=== PATIENT | female | born 1940 | race African-American/Black ===

== ENCOUNTER 2021-07-04 07:23 | Inpatient (IN) | payer MEDICARE ==
[~2021-07-04] VITALS: Ht 167.6 cm; Wt 51.7 kg
[2021-07-04 08:13] LABS: BASOPHILS % 0.2 % (0.0-2.0); HEMATOCRIT. 32.5 % (36.0-48.0); HEMOGLOBIN. 10.6 g/dL (12.0-16.0); LYMPHOCYTES % 9.3 % (20.0-50.0); MEAN CORPUSCULAR HEMOGLOBIN 29.1 pg (28.0-32.0); MEAN CORPUSCULAR VOLUME 89.3 fL (81.0-99.0); MEAN PLATELET VOLUME 8.5 fl (7.4-10.4); MONOCYTES % 12.5 % (2.0-8.0); PLATELET 170 x1000/uL (130-400); RED BLOOD CELL COUNT 3.64 mill/uL (4.2-5.4); RED CELL DISTRIBUTION WIDTH 14.2 % (11.6-14.6)
[2021-07-04 08:23] LABS: CHLORIDE 100 mEq/L (98-107)
[2021-07-04] MEDS ORDERED: SODIUM CHLORIDE 0.9% 500 ML IV ONE (09:30)
[2021-07-04 11:11] LABS: CLARITY URINE CLEAR (CLEAR); COLOR URINE YELLOW (YELLOW); KETONES URINE 1+ (NEGATIVE); LEUKOCYTE ESTERASE URINE NEGATIVE (NEGATIVE); NITRITE URINE NEGATIVE (NEGATIVE); OCCULT BLOOD URINE 1+ (NEGATIVE); PROTEIN URINE 1+ (NEGATIVE); SPECIFIC GRAVITY URINE 1.017 (1.005-1.030); UROBILINOGEN URINE 0.2 E.U./dL (0.2-1.0)
[2021-07-04] MEDS ORDERED: HYDRALAZINE 20MG/ML VIAL IV ONE (14:15)
[2021-07-04] MEDS ORDERED: HYDROCODONE/ACETAMINOPHEN 5/325MG TABLET PO PRN (15:00)
[2021-07-04] MEDS ORDERED: ACETAMINOPHEN 325MG TABLET PO PRN (15:00)
[2021-07-04] MEDS ORDERED: GUAIFENESIN 200MG/10ML SUGAR FREE UDC PO PRN (15:00)
[2021-07-04] MEDS ORDERED: ONDANSETRON HCL 4MG/2ML INJ IV PRN (15:00)
[2021-07-04] MEDS ORDERED: MAGNESIUM/ALUMINUM HYDROXIDE/SIMETHICONE 30ML UDC PO PRN (15:00)
[2021-07-04] MEDS ORDERED: NALOXONE HCL 0.4MG/ML VIAL IV PRN (15:15)
[2021-07-04] MEDS: SODIUM CHLORIDE 0.9% 1,000 ML IV SCH (15:51)
[2021-07-04] MEDS: ENOXAPARIN 40MG/0.4ML SYR SUBCUT SCH (16:00)
[2021-07-04] MEDS: CLONIDINE 0.1MG TABLET PO PRN (17:00)
[2021-07-04] MEDS ORDERED: DEXTROSE 50% WATER 50ML SYRINGE IV PRN (18:45)
[2021-07-04 20:00] VITALS: BP 108/50
[2021-07-04] MEDS: INSULIN LISPRO 100 UNITS/ML SUBCUT SCH (21:00)
[2021-07-04] MEDS: BLOOD SUGAR DIAGNOSTIC STRIP TEST SCH (21:00)
[2021-07-04] MEDS ORDERED: INSULIN LISPRO 100 UNITS/ML SUBCUT SCH (21:30)
[2021-07-04] MEDS ORDERED: METO-411 PO (23:21)
[2021-07-04] MEDS ORDERED: LATA2.5D14 EACHEYE (23:21)
[2021-07-04] MEDS ORDERED: FELO10TA45 PO (23:21)
[2021-07-04] MEDS ORDERED: METF-416 PO (23:21)
[2021-07-04] MEDS ORDERED: GLIP10TA10 PO (23:21)
[2021-07-04] MEDS ORDERED: LOSA1TAB37 PO (23:21)
[2021-07-04] MEDS: AMLODIPINE 10MG TABLET PO SCH (23:30)
[2021-07-05] VITALS: BP 91/43
[2021-07-05] MEDS: SODIUM CHLORIDE 0.9% 1,000 ML IV SCH ×2 (00:24→13:49)
[2021-07-05 04:00] VITALS: BP 126/51
[2021-07-05] MEDS: BLOOD SUGAR DIAGNOSTIC STRIP TEST SCH ×4 (06:35→21:25)
[2021-07-05] MEDS: INSULIN LISPRO 100 UNITS/ML SUBCUT SCH ×4 (06:37→21:44)
[2021-07-05 06:53] LABS: HEMATOCRIT. 31.5 % (36.0-48.0); HEMOGLOBIN. 10.3 g/dL (12.0-16.0); MEAN CORPUSCULAR HEMOGLOBIN 28.9 pg (28.0-32.0); MEAN CORPUSCULAR VOLUME 88.7 fL (81.0-99.0); MEAN PLATELET VOLUME 8.9 fl (7.4-10.4); PLATELET 145 x1000/uL (130-400); RED BLOOD CELL COUNT 3.56 mill/uL (4.2-5.4); RED CELL DISTRIBUTION WIDTH 14.2 % (11.6-14.6)
[2021-07-05 07:39] LABS: FOLIC ACID (FOLATE) SERUM > 20.00 ng/mL (>5.38); VITAMIN B12 SERUM 339 pg/mL (211-911)
[2021-07-05 08:02] VITALS: BP 145/57
[2021-07-05] MEDS: METOPROLOL TARTRATE 50MG TABLET PO SCH ×2 (08:21→21:45)
[2021-07-05] MEDS: AMLODIPINE 10MG TABLET PO SCH (08:21)
[2021-07-05 12:00] VITALS: BP 142/61
[2021-07-05 14:38] LABS: CHLORIDE 105 mEq/L (98-107)
[2021-07-05 14:58] LABS: PHOSPHORUS 3.7 mg/dL (2.5-4.9)
[2021-07-05 16:00] VITALS: BP 170/63
[2021-07-05] MEDS: CLONIDINE 0.1MG TABLET PO PRN (17:10)
[2021-07-05] MEDS: ACETAMINOPHEN 325MG TABLET PO PRN (17:10)
[2021-07-05] MEDS: ENOXAPARIN 40MG/0.4ML SYR SUBCUT SCH (17:15)
[2021-07-05 19:06] LABS: PLATELET ESTIMATE NORMAL
[2021-07-05 20:20] VITALS: BP 99/50
[2021-07-06] VITALS (7 sets, daily range): BP systolic 104–169; BP diastolic 60–81
[2021-07-06] MEDS: BLOOD SUGAR DIAGNOSTIC STRIP TEST SCH ×4 (06:12→21:00)
[2021-07-06] MEDS: INSULIN LISPRO 100 UNITS/ML SUBCUT SCH ×4 (06:19→22:14)
[2021-07-06 08:04] LABS: BASOPHILS % 0.3 % (0.0-2.0); EOSINOPHILS % 0.2 % (0.0-5.0); HEMATOCRIT. 30.9 % (36.0-48.0); HEMOGLOBIN. 10.1 g/dL (12.0-16.0); LYMPHOCYTES % 13.5 % (20.0-50.0); MEAN CORPUSCULAR HEMOGLOBIN 28.6 pg (28.0-32.0); MEAN CORPUSCULAR VOLUME 87.6 fL (81.0-99.0); MEAN PLATELET VOLUME 8.9 fl (7.4-10.4); MONOCYTES % 9.7 % (2.0-8.0); NEUTROPHILS % 76.3 % (40.0-76.0); PLATELET 139 x1000/uL (130-400); RED BLOOD CELL COUNT 3.52 mill/uL (4.2-5.4)
[2021-07-06 08:22] LABS: CHLORIDE 106 mEq/L (98-107)
[2021-07-06 08:31] LABS: PHOSPHORUS 2.5 mg/dL (2.5-4.9)
[2021-07-06] MEDS: METOPROLOL TARTRATE 50MG TABLET PO SCH ×2 (10:14→22:11)
[2021-07-06] MEDS: AMLODIPINE 10MG TABLET PO SCH (10:14)
[2021-07-06] MEDS: SODIUM CHLORIDE 0.9% 1,000 ML IV SCH ×2 (10:15→16:17)
[2021-07-06] MEDS: ENOXAPARIN 40MG/0.4ML SYR SUBCUT SCH (16:17)
[2021-07-06] MEDS ORDERED: INSULIN GLARGINE 100 UNITS/ML SUBCUT SCH (18:15)
[2021-07-06] MEDS: CLONIDINE 0.1MG TABLET PO PRN (22:12)
[2021-07-07] VITALS: BP 131/57
[2021-07-07 04:00] VITALS: BP 158/60
[2021-07-07] MEDS: BLOOD SUGAR DIAGNOSTIC STRIP TEST SCH ×4 (06:06→20:00)
[2021-07-07] MEDS: INSULIN LISPRO 100 UNITS/ML SUBCUT SCH ×7 (06:42→21:00)
[2021-07-07 08:00] VITALS: BP 158/59
[2021-07-07 08:14] LABS: BASOPHILS % 0.2 % (0.0-2.0); EOSINOPHILS % 0.6 % (0.0-5.0); HEMATOCRIT. 29.8 % (36.0-48.0); HEMOGLOBIN. 9.7 g/dL (12.0-16.0); LYMPHOCYTES % 17.9 % (20.0-50.0); MEAN CORPUSCULAR HEMOGLOBIN 28.6 pg (28.0-32.0); MEAN CORPUSCULAR VOLUME 87.9 fL (81.0-99.0); MEAN PLATELET VOLUME 8.7 fl (7.4-10.4); MONOCYTES % 10.8 % (2.0-8.0); NEUTROPHILS % 70.5 % (40.0-76.0); PLATELET 132 x1000/uL (130-400); RED CELL DISTRIBUTION WIDTH 14.2 % (11.6-14.6)
[2021-07-07 08:30] LABS: CHLORIDE 109 mEq/L (98-107)
[2021-07-07 08:37] LABS: PHOSPHORUS 2.2 mg/dL (2.5-4.9); TOTAL IRON BINDING CAPACITY 269 ug/dL (250-450)
[2021-07-07] MEDS: METOPROLOL TARTRATE 50MG TABLET PO SCH ×2 (09:00→21:48)
[2021-07-07] MEDS: AMLODIPINE 10MG TABLET PO SCH (09:00)
[2021-07-07] MEDS: INSULIN GLARGINE 100 UNITS/ML SUBCUT SCH (10:53)
[2021-07-07 12:00] VITALS: BP 164/62
[2021-07-07] MEDS: FERROUS SULFATE 325MG TABLET PO SCH (12:55)
[2021-07-07] MEDS: MAGNESIUM OXIDE 400MG TABLET PO SCH ×2 (12:55→18:04)
[2021-07-07] MEDS: CLONIDINE 0.1MG TABLET PO PRN (13:39)
[2021-07-07] MEDS: POTASSIUM-SODIUM PHOSPHATE POWDER PACKET PO SCH ×2 (13:39→18:04)
[2021-07-07] MEDS: ENOXAPARIN 40MG/0.4ML SYR SUBCUT SCH (15:53)
[2021-07-07 16:00] VITALS: BP 125/59
[2021-07-07 17:32] LABS: T4 FREE 1.8 ng/dL (0.76-1.46)
[2021-07-07 20:00] VITALS: BP 132/57
[2021-07-08] VITALS: BP 142/77
[2021-07-08 04:00] VITALS: BP 141/57
[2021-07-08] MEDS: BLOOD SUGAR DIAGNOSTIC STRIP TEST SCH ×4 (06:08→21:48)
[2021-07-08] MEDS: INSULIN LISPRO 100 UNITS/ML SUBCUT SCH ×7 (06:28→22:06)
[2021-07-08 06:59] LABS: BASOPHILS % 0.2 % (0.0-2.0); EOSINOPHILS % 0.6 % (0.0-5.0); HEMATOCRIT. 29.2 % (36.0-48.0); HEMOGLOBIN. 9.5 g/dL (12.0-16.0); LYMPHOCYTES % 14.8 % (20.0-50.0); MEAN CORPUSCULAR HEMOGLOBIN 28.7 pg (28.0-32.0); MEAN CORPUSCULAR VOLUME 87.6 fL (81.0-99.0); MEAN PLATELET VOLUME 9.2 fl (7.4-10.4); MONOCYTES % 11.3 % (2.0-8.0); NEUTROPHILS % 73.1 % (40.0-76.0); PLATELET 153 x1000/uL (130-400); RED BLOOD CELL COUNT 3.33 mill/uL (4.2-5.4); RED CELL DISTRIBUTION WIDTH 13.6 % (11.6-14.6)
[2021-07-08 08:00] VITALS: BP 144/57
[2021-07-08 08:05] LABS: CHLORIDE 107 mEq/L (98-107); PHOSPHORUS 2.3 mg/dL (2.5-4.9)
[2021-07-08] MEDS: FERROUS SULFATE 325MG TABLET PO SCH (10:27)
[2021-07-08] MEDS: AMLODIPINE 10MG TABLET PO SCH (10:27)
[2021-07-08] MEDS: METOPROLOL TARTRATE 50MG TABLET PO SCH ×2 (10:27→21:44)
[2021-07-08] MEDS: INSULIN GLARGINE 100 UNITS/ML SUBCUT SCH (11:20)
[2021-07-08 12:00] VITALS: BP 130/48
[2021-07-08 16:00] VITALS: BP 152/61
[2021-07-08] MEDS ORDERED: LANC-335 MC (17:03)
[2021-07-08] MEDS ORDERED: [UNRECOGNIZED DRUG - CODE] MC (17:03)
[2021-07-08] MEDS ORDERED: METO-539 PO (17:03)
[2021-07-08] MEDS ORDERED: PEN1DIS.48 MC (17:03)
[2021-07-08] MEDS ORDERED: FERR-63 PO (17:03)
[2021-07-08] MEDS ORDERED: INSU100I28 SQ (17:03)
[2021-07-08] MEDS: ENOXAPARIN 40MG/0.4ML SYR SUBCUT SCH (17:44)
[2021-07-08 20:00] VITALS: BP_SYST 122; BP_SYST 125; BP_DIAS 59; BP_DIAS 66
[2021-07-09] VITALS (7 sets, daily range): BP systolic 108–147; BP diastolic 52–81
[2021-07-09] MEDS: BLOOD SUGAR DIAGNOSTIC STRIP TEST SCH ×4 (06:06→20:46)
[2021-07-09] MEDS: INSULIN LISPRO 100 UNITS/ML SUBCUT SCH ×7 (06:25→20:55)
[2021-07-09] MEDS: METOPROLOL TARTRATE 50MG TABLET PO SCH ×2 (08:29→20:46)
[2021-07-09] MEDS: SODIUM CHLORIDE 0.9% 500 ML IV SCH ×3 (08:29→20:58)
[2021-07-09 10:31] LABS: HEMATOCRIT. 30.9 % (36.0-48.0); HEMOGLOBIN. 9.8 g/dL (12.0-16.0); MEAN CORPUSCULAR VOLUME 87.8 fL (81.0-99.0); MEAN PLATELET VOLUME 8.8 fl (7.4-10.4); PLATELET 213 x1000/uL (130-400); RED BLOOD CELL COUNT 3.52 mill/uL (4.2-5.4); RED CELL DISTRIBUTION WIDTH 13.8 % (11.6-14.6)
[2021-07-09 10:40] LABS: CHLORIDE 108 mEq/L (98-107)
[2021-07-09 10:46] LABS: PHOSPHORUS 3.2 mg/dL (2.5-4.9)
[2021-07-09] MEDS: INSULIN GLARGINE 100 UNITS/ML SUBCUT SCH (11:11)
[2021-07-09] MEDS ORDERED: POTASSIUM CHLORIDE 20MEQ TABLET SR PO NR (14:45)
[2021-07-09 14:49] LABS: PLATELET ESTIMATE NORMAL
[2021-07-09] MEDS: ENOXAPARIN 40MG/0.4ML SYR SUBCUT SCH (17:51)
[2021-07-10] VITALS (7 sets, daily range): BP systolic 125–176; BP diastolic 53–100
[2021-07-10] MEDS: CLONIDINE 0.1MG TABLET PO PRN (00:53)
[2021-07-10] MEDS: SODIUM CHLORIDE 0.9% 500 ML IV SCH ×2 (04:00→11:27)
[2021-07-10] MEDS: BLOOD SUGAR DIAGNOSTIC STRIP TEST SCH ×4 (05:46→21:00)
[2021-07-10] MEDS: INSULIN LISPRO 100 UNITS/ML SUBCUT SCH ×7 (05:53→21:00)
[2021-07-10] MEDS: INSULIN GLARGINE 100 UNITS/ML SUBCUT SCH (10:00)
[2021-07-10] MEDS: FERROUS SULFATE 325MG TABLET PO SCH (11:26)
[2021-07-10] MEDS: METOPROLOL TARTRATE 50MG TABLET PO SCH (11:27)
[2021-07-10] MEDS: ENOXAPARIN 40MG/0.4ML SYR SUBCUT SCH (16:00)
[2021-07-10 16:59] LABS: CHLORIDE 107 mEq/L (98-107)
[2021-07-10] MEDS: SODIUM CHLORIDE 0.9% 1,000 ML IV SCH (18:53)
[2021-07-11] VITALS: BP 124/70
[2021-07-11] MEDS: METOPROLOL TARTRATE 50MG TABLET PO SCH ×3 (03:19→21:37)
[2021-07-11 04:00] VITALS: BP 160/84
[2021-07-11] MEDS: SODIUM CHLORIDE 0.9% 1,000 ML IV SCH ×2 (07:08→21:20)
[2021-07-11] MEDS: INSULIN LISPRO 100 UNITS/ML SUBCUT SCH ×7 (07:10→21:38)
[2021-07-11] MEDS: BLOOD SUGAR DIAGNOSTIC STRIP TEST SCH ×4 (07:18→21:40)
[2021-07-11 08:00] VITALS: BP 171/69
[2021-07-11] MEDS: INSULIN GLARGINE 100 UNITS/ML SUBCUT SCH (10:47)
[2021-07-11 12:00] VITALS: BP 151/65
[2021-07-11] MEDS ORDERED: POTASSIUM CHLORIDE 20MEQ TABLET SR PO NR (12:15)
[2021-07-11] MEDS: AMLODIPINE 10MG TABLET PO SCH (14:40)
[2021-07-11 16:00] VITALS: BP 158/68
[2021-07-11] MEDS: ENOXAPARIN 40MG/0.4ML SYR SUBCUT SCH (18:20)
[2021-07-11 20:00] VITALS: BP_SYST 138; BP_SYST 167; BP_SYST 184; BP_DIAS 50; BP_DIAS 59; BP_DIAS 67
[2021-07-12] VITALS: BP 142/65
[2021-07-12 04:00] VITALS: BP 147/68
[2021-07-12] MEDS: INSULIN LISPRO 100 UNITS/ML SUBCUT SCH ×6 (06:32→21:00)
[2021-07-12] MEDS: BLOOD SUGAR DIAGNOSTIC STRIP TEST SCH ×3 (06:33→21:38)
[2021-07-12 08:00] VITALS: BP 145/72
[2021-07-12] MEDS: METOPROLOL TARTRATE 50MG TABLET PO SCH ×2 (09:39→21:00)
[2021-07-12] MEDS: FERROUS SULFATE 325MG TABLET PO SCH (09:39)
[2021-07-12] MEDS: AMLODIPINE 10MG TABLET PO SCH (09:40)
[2021-07-12] MEDS: SODIUM CHLORIDE 0.9% 1,000 ML IV SCH (09:42)
[2021-07-12] MEDS: INSULIN GLARGINE 100 UNITS/ML SUBCUT SCH (09:42)
[2021-07-12 12:00] VITALS: BP 146/70
[2021-07-12 16:00] VITALS: BP 151/68
[2021-07-12] MEDS: ENOXAPARIN 40MG/0.4ML SYR SUBCUT SCH (16:28)
[2021-07-12 20:00] VITALS: BP 113/62
[2021-07-13] VITALS (7 sets, daily range): BP systolic 130–159; BP diastolic 69–78
[2021-07-13] MEDS: INSULIN LISPRO 100 UNITS/ML SUBCUT SCH ×7 (06:15→21:00)
[2021-07-13] MEDS: BLOOD SUGAR DIAGNOSTIC STRIP TEST SCH ×4 (06:15→21:16)
[2021-07-13] MEDS: AMLODIPINE 10MG TABLET PO SCH (09:02)
[2021-07-13] MEDS: METOPROLOL TARTRATE 50MG TABLET PO SCH (09:02)
[2021-07-13] MEDS: INSULIN GLARGINE 100 UNITS/ML SUBCUT SCH (09:09)
[2021-07-13] MEDS: CARVEDILOL 6.25 MG TABLET PO SCH ×2 (12:46→21:20)
[2021-07-13 15:47] LABS: BASOPHILS % 0.3 % (0.0-2.0); EOSINOPHILS % 0.3 % (0.0-5.0); HEMATOCRIT. 27.8 % (36.0-48.0); HEMOGLOBIN. 9.1 g/dL (12.0-16.0); LYMPHOCYTES % 12.9 % (20.0-50.0); MEAN CORPUSCULAR HEMOGLOBIN 28.6 pg (28.0-32.0); MEAN CORPUSCULAR VOLUME 87.3 fL (81.0-99.0); MEAN PLATELET VOLUME 7.6 fl (7.4-10.4); MONOCYTES % 9.5 % (2.0-8.0); PLATELET 301 x1000/uL (130-400); RED BLOOD CELL COUNT 3.18 mill/uL (4.2-5.4); RED CELL DISTRIBUTION WIDTH 13.2 % (11.6-14.6)
[2021-07-13 15:57] LABS: CHLORIDE 108 mEq/L (98-107)
[2021-07-13] MEDS: ENOXAPARIN 40MG/0.4ML SYR SUBCUT SCH (17:23)
[2021-07-13] MEDS: SODIUM CHLORIDE 0.9% 1,000 ML IV SCH ×2 (17:25)
[2021-07-14] VITALS: BP 156/71
[2021-07-14] MEDS: SODIUM CHLORIDE 0.9% 1,000 ML IV SCH ×2 (00:24→17:06)
[2021-07-14 04:00] VITALS: BP 157/81
[2021-07-14] MEDS: BLOOD SUGAR DIAGNOSTIC STRIP TEST SCH ×4 (06:28→21:24)
[2021-07-14] MEDS: INSULIN LISPRO 100 UNITS/ML SUBCUT SCH ×7 (06:30→21:00)
[2021-07-14 08:00] VITALS: BP 159/79
[2021-07-14] MEDS: CARVEDILOL 6.25 MG TABLET PO SCH ×2 (10:16→21:23)
[2021-07-14] MEDS: AMLODIPINE 10MG TABLET PO SCH (10:16)
[2021-07-14] MEDS: INSULIN GLARGINE 100 UNITS/ML SUBCUT SCH (10:43)
[2021-07-14 12:00] VITALS: BP 155/68
[2021-07-14] MEDS: CLONIDINE 0.1MG TABLET PO PRN (13:28)
[2021-07-14 16:00] VITALS: BP 120/61
[2021-07-14 17:06] LABS: BG BASE EXCESS 1.1 mmol/L (-2.0-2.0); BG CARBOXYHEMOGLOBIN 0.3 % (0.5-1.5); BG DEOXYHEMOGLOBIN 13.2 % (0.0-5.0); BG FRACTION INSPIRED OXYGEN 21; BG HCO3 ACT 23.4 mmol/L (22.0-26.0); BG METHEMOGLOBIN 0.2 % (0.0-1.5); BG OXYGEN SATURATION 86.7 % (92.0-98.5); BG OXYHEMOGLOBIN 86.3 % (94.0-97.0); BG PCO2 29.3 mmHg (35.0-45.0); BG PH 7.521 (7.350-7.450); BG SAMPLE SITE LEFT RADIAL; BG VENT MODE ROOM AIR
[2021-07-14] MEDS: ENOXAPARIN 40MG/0.4ML SYR SUBCUT SCH (17:06)
[2021-07-14] MEDS ORDERED: IOHEXOL-350 100 ML BOTTLE ONE (19:04)
[2021-07-14 20:00] VITALS: BP 119/56
[2021-07-14] MEDS: MEMANTINE HCL 5MG TABLET PO SCH (21:24)
[2021-07-15] VITALS: BP 122/68
[2021-07-15 04:00] VITALS: BP 142/64
[2021-07-15] MEDS: SODIUM CHLORIDE 0.9% 1,000 ML IV SCH ×2 (05:36→21:24)
[2021-07-15] MEDS: INSULIN LISPRO 100 UNITS/ML SUBCUT SCH ×7 (05:40→21:27)
[2021-07-15] MEDS: BLOOD SUGAR DIAGNOSTIC STRIP TEST SCH ×4 (05:41→21:00)
[2021-07-15 08:00] VITALS: BP 125/68
[2021-07-15] MEDS ORDERED: APIXABAN 2.5 MG TABLET PO SCH (09:00)
[2021-07-15] MEDS: MEMANTINE HCL 5MG TABLET PO SCH ×2 (09:12→21:26)
[2021-07-15] MEDS: AMLODIPINE 10MG TABLET PO SCH (09:12)
[2021-07-15] MEDS: CARVEDILOL 6.25 MG TABLET PO SCH ×2 (09:12→21:25)
[2021-07-15] MEDS: FERROUS SULFATE 325MG TABLET PO SCH (09:17)
[2021-07-15] MEDS: INSULIN GLARGINE 100 UNITS/ML SUBCUT SCH (10:54)
[2021-07-15] MEDS: CEFTRIAXONE 1,000 MG in DEXTROSE 5% WATER 50 ML IV SCH (10:55)
[2021-07-15 12:00] VITALS: BP 118/74
[2021-07-15 16:00] VITALS: BP 131/52
[2021-07-15 20:00] VITALS: BP 144/61
[2021-07-15] MEDS: ACETAMINOPHEN 325MG TABLET PO PRN (23:37)
[2021-07-16] VITALS: BP 140/59
[2021-07-16 04:00] VITALS: BP 123/57
[2021-07-16] MEDS: BLOOD SUGAR DIAGNOSTIC STRIP TEST SCH ×4 (06:40→21:00)
[2021-07-16] MEDS: INSULIN LISPRO 100 UNITS/ML SUBCUT SCH ×7 (06:40→21:29)
[2021-07-16 08:00] VITALS: BP 136/59
[2021-07-16] MEDS: AMLODIPINE 10MG TABLET PO SCH (08:57)
[2021-07-16] MEDS: MEMANTINE HCL 5MG TABLET PO SCH ×2 (08:57→21:47)
[2021-07-16] MEDS: CARVEDILOL 6.25 MG TABLET PO SCH ×2 (08:57→21:47)
[2021-07-16] MEDS: INSULIN GLARGINE 100 UNITS/ML SUBCUT SCH (10:03)
[2021-07-16] MEDS: CEFTRIAXONE 1,000 MG in DEXTROSE 5% WATER 50 ML IV SCH (10:04)
[2021-07-16 12:00] VITALS: BP 140/53
[2021-07-16] MEDS: ENOXAPARIN 30MG/0.3ML SYR SUBCUT SCH (12:34)
[2021-07-16] MEDS: SODIUM CHLORIDE 0.9% 1,000 ML IV SCH ×2 (12:38→21:45)
[2021-07-16 16:00] VITALS: BP 111/73
[2021-07-16 20:00] VITALS: BP 149/67
[2021-07-16] MEDS: ACETAMINOPHEN 325MG TABLET PO PRN (21:46)
[2021-07-17] VITALS: BP 127/57
[2021-07-17 04:00] VITALS: BP 150/56
[2021-07-17] MEDS: BLOOD SUGAR DIAGNOSTIC STRIP TEST SCH ×4 (06:01→21:00)
[2021-07-17] MEDS: INSULIN LISPRO 100 UNITS/ML SUBCUT SCH ×7 (06:01→21:00)
[2021-07-17 08:00] VITALS: BP 151/65
[2021-07-17] MEDS: CARVEDILOL 6.25 MG TABLET PO SCH ×2 (09:03→22:11)
[2021-07-17] MEDS: FERROUS SULFATE 325MG TABLET PO SCH (09:03)
[2021-07-17] MEDS: AMLODIPINE 10MG TABLET PO SCH (09:03)
[2021-07-17] MEDS: MEMANTINE HCL 5MG TABLET PO SCH ×2 (09:03→22:11)
[2021-07-17] MEDS: CEFTRIAXONE 1,000 MG in DEXTROSE 5% WATER 50 ML IV SCH (10:21)
[2021-07-17] MEDS: INSULIN GLARGINE 100 UNITS/ML SUBCUT SCH (10:29)
[2021-07-17 12:00] VITALS: BP 135/58
[2021-07-17] MEDS: SODIUM CHLORIDE 0.9% 1,000 ML IV SCH (12:58)
[2021-07-17] MEDS: ENOXAPARIN 30MG/0.3ML SYR SUBCUT SCH (12:58)
[2021-07-17 15:39] LABS: BASOPHILS % 0.5 % (0.0-2.0); EOSINOPHILS % 0.6 % (0.0-5.0); HEMATOCRIT. 25.8 % (36.0-48.0); HEMOGLOBIN. 8.4 g/dL (12.0-16.0); MEAN PLATELET VOLUME 7.8 fl (7.4-10.4); MONOCYTES % 10.1 % (2.0-8.0); NEUTROPHILS % 77.8 % (40.0-76.0); PLATELET 319 x1000/uL (130-400); RED CELL DISTRIBUTION WIDTH 13.8 % (11.6-14.6)
[2021-07-17 15:57] LABS: CHLORIDE 111 mEq/L (98-107)
[2021-07-17 16:00] VITALS: BP 131/61
[2021-07-17] MEDS ORDERED: POTASSIUM CHLORIDE 20MEQ TABLET SR PO NR (19:00)
[2021-07-17 20:00] VITALS: BP 122/56
[2021-07-18] VITALS: BP 140/57
[2021-07-18 04:00] VITALS: BP 136/49
[2021-07-18] MEDS: INSULIN LISPRO 100 UNITS/ML SUBCUT SCH ×7 (06:11→21:26)
[2021-07-18] MEDS: BLOOD SUGAR DIAGNOSTIC STRIP TEST SCH ×4 (06:11→21:26)
[2021-07-18 08:00] VITALS: BP 140/67
[2021-07-18] MEDS: CARVEDILOL 6.25 MG TABLET PO SCH ×2 (08:50→21:26)
[2021-07-18] MEDS: MEMANTINE HCL 5MG TABLET PO SCH ×2 (08:50→21:26)
[2021-07-18] MEDS: AMLODIPINE 10MG TABLET PO SCH (08:50)
[2021-07-18] MEDS: INSULIN GLARGINE 100 UNITS/ML SUBCUT SCH (10:58)
[2021-07-18] MEDS: CEFTRIAXONE 1,000 MG in DEXTROSE 5% WATER 50 ML IV SCH (11:02)
[2021-07-18 12:00] VITALS: BP 146/71
[2021-07-18] MEDS: ENOXAPARIN 30MG/0.3ML SYR SUBCUT SCH (12:50)
[2021-07-18 16:00] VITALS: BP 150/72
[2021-07-18] MEDS: SODIUM CHLORIDE 0.9% 1,000 ML IV SCH ×3 (17:38→23:58)
[2021-07-18 18:13] LABS: CHLORIDE 110 mEq/L (98-107)
[2021-07-19] VITALS: BP 165/65
[2021-07-19] MEDS: BLOOD SUGAR DIAGNOSTIC STRIP TEST SCH ×4 (06:40→20:13)
[2021-07-19] MEDS: INSULIN LISPRO 100 UNITS/ML SUBCUT SCH ×7 (06:40→20:20)
[2021-07-19 08:00] VITALS: BP 149/69
[2021-07-19] MEDS: FERROUS SULFATE 325MG TABLET PO SCH (09:04)
[2021-07-19] MEDS: MEMANTINE HCL 5MG TABLET PO SCH ×2 (09:04→20:14)
[2021-07-19] MEDS: AMLODIPINE 10MG TABLET PO SCH (09:04)
[2021-07-19] MEDS: CARVEDILOL 6.25 MG TABLET PO SCH ×2 (09:04→20:13)
[2021-07-19] MEDS: ENOXAPARIN 30MG/0.3ML SYR SUBCUT SCH (10:55)
[2021-07-19] MEDS: CEFTRIAXONE 1,000 MG in DEXTROSE 5% WATER 50 ML IV SCH (10:55)
[2021-07-19] MEDS: INSULIN GLARGINE 100 UNITS/ML SUBCUT SCH (10:55)
[2021-07-19 12:00] VITALS: BP 144/66
[2021-07-19 16:00] VITALS: BP 130/60
[2021-07-19] MEDS: SODIUM CHLORIDE 0.9% 1,000 ML IV SCH (16:42)
[2021-07-19 20:00] VITALS: BP 138/57
[2021-07-19 20:16] LABS: HEMATOCRIT 27.2 % (36.0-48.0); HEMOGLOBIN 8.6 g/dL (12.0-16.0); MEAN CORPUSCULAR HEMOGLOBIN 27.4 pg (28.0-32.0); MEAN CORPUSCULAR VOLUME 87.2 fL (81.0-99.0); PLATELET 287 x1000/uL (130-400); RED BLOOD CELL COUNT 3.12 mill/uL (4.2-5.4); RED CELL DISTRIBUTION WIDTH 13.9 % (11.6-14.6)
[2021-07-19 20:36] LABS: CHLORIDE 111 mEq/L (98-107)
[2021-07-20] VITALS: BP 132/55
[2021-07-20 04:00] VITALS: BP 136/54
[2021-07-20] MEDS: SODIUM CHLORIDE 0.9% 1,000 ML IV SCH ×2 (04:21→18:02)
[2021-07-20] MEDS: INSULIN LISPRO 100 UNITS/ML SUBCUT SCH ×7 (05:44→20:42)
[2021-07-20] MEDS: BLOOD SUGAR DIAGNOSTIC STRIP TEST SCH ×4 (06:01→20:30)
[2021-07-20 08:00] VITALS: BP_SYST 130; BP_SYST 138; BP_DIAS 60; BP_DIAS 63
[2021-07-20] MEDS: AMLODIPINE 10MG TABLET PO SCH (10:04)
[2021-07-20] MEDS: MEMANTINE HCL 5MG TABLET PO SCH ×2 (10:04→20:30)
[2021-07-20] MEDS: CARVEDILOL 6.25 MG TABLET PO SCH ×2 (10:04→20:30)
[2021-07-20] MEDS: CEFTRIAXONE 1,000 MG in DEXTROSE 5% WATER 50 ML IV SCH (10:05)
[2021-07-20] MEDS: INSULIN GLARGINE 100 UNITS/ML SUBCUT SCH (10:06)
[2021-07-20 10:37] LABS: BG BASE EXCESS 1.1 mmol/L (-2.0-2.0); BG CARBOXYHEMOGLOBIN 0.3 % (0.5-1.5); BG DEOXYHEMOGLOBIN 4.8 % (0.0-5.0); BG FRACTION INSPIRED OXYGEN 21; BG HCO3 ACT 23.9 mmol/L (22.0-26.0); BG METHEMOGLOBIN 0.4 % (0.0-1.5); BG OXYGEN SATURATION 95.2 % (92.0-98.5); BG OXYHEMOGLOBIN 94.5 % (94.0-97.0); BG PCO2 30.7 mmHg (35.0-45.0); BG PO2 72.8 mmHg (75.0-100.0); BG SAMPLE SITE LEFT RADIAL; BG TOTAL HEMOGLOBIN 8.1 g/dL (12.0-18.0); BG VENT MODE ROOM AIR
[2021-07-20] MEDS: ENOXAPARIN 30MG/0.3ML SYR SUBCUT SCH (11:55)
[2021-07-20 12:00] VITALS: BP 129/59
[2021-07-20 16:00] VITALS: BP 136/60
[2021-07-20 20:00] VITALS: BP 111/54
[2021-07-21] VITALS: BP 128/46
[2021-07-21 04:00] VITALS: BP 138/57
[2021-07-21] MEDS: BLOOD SUGAR DIAGNOSTIC STRIP TEST SCH ×2 (06:20→11:40)
[2021-07-21] MEDS: INSULIN LISPRO 100 UNITS/ML SUBCUT SCH ×4 (06:26→13:26)
[2021-07-21 08:00] VITALS: BP 131/60
[2021-07-21] MEDS: SODIUM CHLORIDE 0.9% 1,000 ML IV SCH (08:00)
[2021-07-21] MEDS: CARVEDILOL 6.25 MG TABLET PO SCH (08:59)
[2021-07-21] MEDS: AMLODIPINE 10MG TABLET PO SCH (09:00)
[2021-07-21] MEDS: MEMANTINE HCL 5MG TABLET PO SCH (09:02)
[2021-07-21] MEDS: ENOXAPARIN 30MG/0.3ML SYR SUBCUT SCH (10:25)
[2021-07-21] MEDS: INSULIN GLARGINE 100 UNITS/ML SUBCUT SCH (10:26)
[2021-07-21 12:00] VITALS: BP 139/64
== END 2021-07-21 14:00 | disposition left against medical advice (07) | DRG 74 ==
LOC: ER 08:39 → 8WST 13:24 → EDBEDREQTM 13:34 → EDBEDREQ 13:34 → SUPCPDRO 14:48 → ENRESERV 16:32 → 7EST 07-12 16:50
PROVIDERS: ADMIT Internal Medicine Pulmonary Disease; ATTEND Internal Medicine Pulmonary Disease
DX: G90.8 Other disorders of autonomic nervous system (principal); E87.1 Hypo-osmolality and hyponatremia; I50.32 Chronic diastolic (congestive) heart failure; I11.0 Hypertensive heart disease with heart failure; E11.9 Type 2 diabetes mellitus without complications; D50.9 Iron deficiency anemia, unspecified; E83.39 Other disorders of phosphorus metabolism; E83.42 Hypomagnesemia; I16.0 Hypertensive urgency; I95.1 Orthostatic hypotension; M41.9 Scoliosis, unspecified; W19.XXXA Unspecified fall, initial encounter; Z20.822 Contact with and (suspected) exposure to COVID-19; Z79.84 Long term (current) use of oral hypoglycemic drugs; Z79.899 Other long term (current) drug therapy; Z91.81 History of falling; Y93.E2 Activity, laundry; Y92.098 Other place in other non-institutional residence as the place of occurrence of the external cause; Y99.8 Other external cause status
CPT/HCPCS: 36415; 36600; 70551; 71045; 71275; 72070; 72110; 73522; 80048; 80053; 80061; 81003; 82375; 82607; 82728; 82746; 82805; 82962; 83036; 83540; 83550; 83735; 83880; 84100; 84439; 84443; 84484; 85025; 85027; 85379; 86140; 86141; 87426; 93005; 93306; 93970; 95816; 97116; 97162; 97166; 97530; 97535; 99285; G0378; J0360; J0696; J1650; J1815; J7030; J7060; Q9967; U0003; U0005